=== PATIENT | female | born 2000 | race Caucasian/White ===

== ENCOUNTER 2022-04-07 13:31 | Emergency (ER) | payer MEDICAID ==
[~2022-04-07] VITALS: Ht 175.3 cm; Wt 86.4 kg
[~2022-04-07 13:31] MED LIST: ZOF4T PO
[2022-04-07 13:47] VITALS: BP 106/68
== END 2022-04-07 14:50 | disposition home or self-care (01) ==
LOC: ER 13:32
DX: S92.511A Displaced fracture of proximal phalanx of right lesser toe(s), initial encounter for closed fracture (principal); W22.8XXA Striking against or struck by other objects, initial encounter; Y93.89 Activity, other specified; Y92.89 Other specified places as the place of occurrence of the external cause; Y99.8 Other external cause status
CPT/HCPCS: 73630; 99283; L4360

== ENCOUNTER 2023-10-03 18:15 | Emergency (ER) | payer MEDICAID ==
[~2023-10-03] VITALS: Ht 175.3 cm; Wt 86.4 kg
[2023-10-03 18:18] VITALS: BP 132/74; PULSE 78; RESP 18; TEMP 98.8; O2SAT 98
[2023-10-03] MEDS ORDERED: cephalexin 500mg capsule PO ONE (19:20)
[2023-10-03] MEDS ORDERED: bacitracin 15gm ointment TP ONE (19:20)
[2023-10-03] MEDS ORDERED: CEPH-585 PO (19:21)
== END 2023-10-03 19:52 | disposition home or self-care (01) ==
LOC: ER 18:15
DX: S56.192A Other injury of flexor muscle, fascia and tendon of left index finger at forearm level, initial encounter (principal); W45.8XXA Other foreign body or object entering through skin, initial encounter; Y93.89 Activity, other specified; Y92.89 Other specified places as the place of occurrence of the external cause; Y99.8 Other external cause status
CPT/HCPCS: 99283

== ENCOUNTER 2023-12-20 13:03 | Emergency (ER) | payer MEDICAID ==
[~2023-12-20] VITALS: Ht 175.3 cm; Wt 90.9 kg
[~2023-12-20 13:03] MED LIST changes: +CEPH-585 PO
[2023-12-20 13:34] VITALS: BP 114/58; PULSE 82; TEMP 97.2; O2SAT 99
[2023-12-20] MEDS ORDERED: ondansetron 4mg rapidly disintigrating tab PO ONE (14:40)
[2023-12-20] MEDS ORDERED: morphine 2 MG/ML inj. syringe IM ONE (14:40)
[2023-12-20] MEDS: ketorolac trometh. 30mg/ml inj. IM ONE (14:46)
[2023-12-20] MEDS ORDERED: ibuprofen tablet 400 MG TABLET PO ONE (14:50)
[2023-12-20] MEDS ORDERED: PRED20TA PO (14:56)
[2023-12-20] MEDS ORDERED: IBUP-1984 PO (14:56)
[2023-12-20] MEDS: predniSONE 20 mg tablet PO ONE (15:39)
[2023-12-20 15:40] VITALS: RESP 16
[2023-12-20] MEDS: morphine 2 MG/ML inj. syringe IM ONE (15:40)
== END 2023-12-20 15:56 | disposition home or self-care (01) ==
LOC: ER 13:03
DX: S39.012A Strain of muscle, fascia and tendon of lower back, initial encounter (principal); Z79.2 Long term (current) use of antibiotics; Z79.1 Long term (current) use of non-steroidal anti-inflammatories (NSAID); X58.XXXA Exposure to other specified factors, initial encounter; Y93.89 Activity, other specified; Y92.89 Other specified places as the place of occurrence of the external cause; Y99.8 Other external cause status
CPT/HCPCS: 96372; 99283; J2270; J7512